=== PATIENT | male | born 1980 | race African-American/Black ===

== ENCOUNTER 2020-01-18 09:30 | Emergency (ER) | payer SELFPAY ==
[2020-01-18] MEDS ORDERED: DEXTROSE 50% 25 GM / 50ML DISP.SYRIN. IV ONE (09:36)
--- NOTE | 2020-01-18 10:15 | PHYS DOC ---
General Adult EDM: Chief Complaint: CPR/FULL ARREST HPI: HPI: 39-year-old male past medical history significant for autism (nonverbal, wheelchair bound), with history of cerebral atrophy, bradycardia with pacemaker ( 2020 at ), hypothyroidism, intellectual disability, nonconvulsive status epilepticus, GERD, history of left periorbital abscess/septic shock/MSSA bacteremia/vasogenic shock/hypothermia, and GERD, presents to the ED brought in by EMS from assisted living facility, status post asystole cardiac arrest, 3 epi with supraglottic device placed prior to arrival with 18gG IV peripheral access. EMS reports patient's glucose was 31 and repeat was 21. D10 was initiated prior to arrival. ACLS in progress. Review of Systems: Review of Systems: ROS: Unable to be obtained due to medical condition Current Medications: Current Medications Medications (Trade) Dose Ordered Sig/Ant Start Time Stop Time Status Last Admin Dose Admin Dextrose (Dextrose 50%-Water Syringe) 25 gm STK-MED ONCE 01/18/20 09:36 01/18/20 09:36 DC Physical Exam: PE: Constitutional: severely malnourished/cachetic/emaciated, HENT: large head-hydrocephaly?, oropharynx moist, supraglottic device Eyes: conjunctiva normal, no discharge Neck: +bl JVD, no stridor. [] Cardiovascular: asystole on monitor w/pacemaker Lungs & Thorax: bilateral breath sounds/chest rise with bagging Abdomen: soft, sinks under ribs Skin: scratches over abdomen/upper chest, entire body is ice cold -slightly worse in extremities Back: upper back with superficial scratches, Extremities: no clubbing, no edema. [] Neurologic: GCS3 EKG: EKG: [] Radiology/Procedures: Radiology/Procedures: Indication: Respiratory failure Consent: Unable to give consent due to emergent nature. Medications Used: None, GCS3 in cardiac arrest Procedure: The patient was placed in the appropriate position. Intubation was performed MAC 3 blade glide scope 7.5 endotracheal tube, secured with external device. Initial confirmation of placement included bilateral breath sounds, tube fogging, adequate chest rise, yellow capnography Complications: none.[] Course & Med Decision Making: Course & Med Decision Making Pertinent Labs and Imaging studies reviewed. (See chart for details) ACLS protocol was resumed upon ED arrival. Home was removed, manual compressions started. Presented asystole. Pt was intubated for airway protection. Glucose read as "low." Pt was given epi, D50, calcium, bicarb and IVFs. D10 per ems, 90% completed. Suspect OHCA started at 8:45am. Unable to obtain rosc. Likely a combination of hypothermia, hypoglycemia and severe calorie/protein malnutrition +/- infection. Bedside pocus showing no cardiac mo vement during entire resuscitation (PSL/SX views). Time of called at 9:38am. Father, Valdez Cool present in ed and notified. Father reported that pt had been admitted to twice this year, one admission was longer than 1 month. Reports pacemaker was placed for bradycardia, Stated pt had stopped eating the past few months (part of why pt was admitted to ) and pt significantly declined, now minimally/not interactive. Critical Care: Authorized and Performed by: Fadia Shelby DO Total critical care time: approximately 30 minutes Due to a high probability of clinically significant, life threatening deterioration, the patient required my highest level of preparedness to intervene emergently and I personally spent this critical care time directly and personally managing the patient. This critical care time included obtaining a history; examining the patient; pulse oximetry; ventilator management if necessary; ordering and review of studies; arranging urgent treatment with development of a management plan; evaluation of patient's response to treatment; frequent reassessment; discussion with patient/family; and, discussions with other providers. This critical care time was performed to assess and manage the high probability of imminent, life-threatening deterioration that could result in multi-organ failure. It was exclusive of separately billable procedures and treating other patients and teaching time. Please see MDM section and the rest of the note for further information on patient assessment and treatment. Dragon Disclaimer: Dragon Disclaimer: This electronic medical record was generated, in whole or in part, using a voice recognition dictation system. Departure Departure Impression: Primary Impression: Cardiac arrest Additional Impressions: Hypoglycemia Hypothermia Severe protein-calorie malnutrition Disposition: 20 Referrals: UNKNOWN PCP NAME (PCP) FADIA SHELBY DO Jan 18, 2020 10:15
== END 2020-01-18 12:00 | disposition expired ==
LOC: ER 09:30
DX: I46.9 Cardiac arrest, cause unspecified (principal); E16.2 Hypoglycemia, unspecified; T68.XXXA Hypothermia, initial encounter; E43 Unspecified severe protein-calorie malnutrition; E03.9 Hypothyroidism, unspecified; G40.901 Epilepsy, unspecified, not intractable, with status epilepticus; K21.9 Gastro-esophageal reflux disease without esophagitis; F84.0 Autistic disorder
CPT/HCPCS: 31500; 92950; 99291-25